=== PATIENT | female | born 1945 | race Caucasian/White ===

== ENCOUNTER 2016-09-28 22:49 | Inpatient (IN) | payer OTHER ==
[~2016-09-28] VITALS: Ht 160 cm; Wt 92.4 kg
[2016-09-28 23:31] LABS: PLATELET COUNT 362 x10^3mcL (130-400); RED CELL DISTRIBUTION WIDTH 12.5 % (11.5-14.5)
[2016-09-28 23:48] LABS: ALBUMIN 3.9 g/dL (3.4-5.0); ALKALINE PHOSPHATASE 89 U/L (46-116); ALT/SGPT 35 U/L (14-59); AST/SGOT 67 U/L (15-37); BILIRUBIN TOTAL 1.6 mg/dL (0.20-1.00); CALCIUM 8.8 mg/dL (8.5-10.1); CARBON DIOXIDE 20.8 mmol/L (21-32); CHLORIDE SERUM 65 mmol/L (98-107); CREATININE SERUM 0.7 mg/dL (0.6-1.0); GLUCOSE SERUM 155 mg/dL (74-106); POTASSIUM SERUM 3.3 mmol/L (3.5-5.1); TOTAL PROTEIN, SERUM 7.5 g/dL (6.4-8.2)
[2016-09-28 23:50] LABS: SODIUM SERUM 100 mmol/L (136-145)
[2016-09-29] VITALS (7 sets, daily range): BP systolic 90–150; BP diastolic 44–84; Ht 160 cm; Wt 92.4 kg
[2016-09-29] LABS: microscopic required? YES; urine erythrocyte 2+ (NEGATIVE)
[2016-09-29 00:10] LABS: AMPHETAMINE QUAL UR NONE DETECTED (NEG <=1000)
[2016-09-29 00:12] LABS: BAND NEUTROPHIL 0 % (0-10); BASOPHIL 0 % (0-2); MONOCYTE 7 % (0-7); SEGMENTED NEUTROPHILS 86 % (37-75); rbc morphology (normal/abnorm) NORMAL (NORMAL)
[2016-09-29 00:13] LABS: PLATELET MORPHOLOGY LARGE PLATELET SEEN
[2016-09-29 00:32] LABS: CK-MB 38.6 ng/mL (0-3.6)
[2016-09-29] MEDS ORDERED: ASPIR LOW81 MG PO (00:37)
[2016-09-29] MEDS ORDERED: CAC650 PO (00:38)
[2016-09-29] MEDS ORDERED: HYDROCHLOROTHIA25 MG PO (00:39)
[2016-09-29] MEDS ORDERED: LATUDA80 M1 (00:39)
[2016-09-29] MEDS ORDERED: STOOL SOFTENER100 MG PO (00:39)
[2016-09-29] MEDS ORDERED: NEURONTIN600 MG PO (00:39)
[2016-09-29] MEDS ORDERED: LISINOPRIL40 MG PO (00:39)
[2016-09-29] MEDS ORDERED: PROCARDIA XL90 MG PO (00:40)
[2016-09-29] MEDS ORDERED: ZOCOR40 MG PO (00:40)
[2016-09-29 06:37] LABS: BASOPHIL % 0.1 % (0-2); PLATELET COUNT 341 x10^3mcL (130-400); RED CELL DISTRIBUTION WIDTH 12.4 % (11.5-14.5)
[2016-09-29 06:50] LABS: ALKALINE PHOSPHATASE 76 U/L (46-116); ALT/SGPT 31 U/L (14-59); AST/SGOT 59 U/L (15-37); CALCIUM 7.9 mg/dL (8.5-10.1); CARBON DIOXIDE 21.6 mmol/L (21-32); CHLORIDE SERUM 76 mmol/L (98-107); CREATININE SERUM 0.5 mg/dL (0.6-1.0); GLUCOSE SERUM 113 mg/dL (74-106); POTASSIUM SERUM 3.1 mmol/L (3.5-5.1)
[2016-09-29 06:57] LABS: ALBUMIN 3.3 g/dL (3.4-5.0); SODIUM SERUM 109 mmol/L (136-145); TOTAL PROTEIN, SERUM 5.9 g/dL (6.4-8.2)
[2016-09-29 18:42] LABS: ALKALINE PHOSPHATASE 74 U/L (46-116); ALT/SGPT 32 U/L (14-59); AST/SGOT 56 U/L (15-37); BILIRUBIN TOTAL 0.6 mg/dL (0.20-1.00); CALCIUM 8.5 mg/dL (8.5-10.1); CARBON DIOXIDE 25.2 mmol/L (21-32); CHLORIDE SERUM 89 mmol/L (98-107); CREATININE SERUM 0.7 mg/dL (0.6-1.0); GLUCOSE SERUM 77 mg/dL (74-106); POTASSIUM SERUM 3.1 mmol/L (3.5-5.1); TOTAL PROTEIN, SERUM 6.3 g/dL (6.4-8.2)
[2016-09-29 19:00] LABS: ALBUMIN 3.2 g/dL (3.4-5.0)
[2016-09-29 19:04] LABS: SODIUM SERUM 123 mmol/L (136-145)
[2016-09-30 05:42] VITALS: BP 102/62
[2016-09-30 06:05] LABS: BASOPHIL % 0.9 % (0-2); PLATELET COUNT 331 x10^3mcL (130-400); RED CELL DISTRIBUTION WIDTH 12.8 % (11.5-14.5)
[2016-09-30 06:31] LABS: ALKALINE PHOSPHATASE 63 U/L (46-116); ALT/SGPT 30 U/L (14-59); AST/SGOT 45 U/L (15-37); BILIRUBIN TOTAL 0.4 mg/dL (0.20-1.00); CALCIUM 8.4 mg/dL (8.5-10.1); CARBON DIOXIDE 23.1 mmol/L (21-32); CHLORIDE SERUM 96 mmol/L (98-107); CREATININE SERUM 0.7 mg/dL (0.6-1.0); GLUCOSE SERUM 93 mg/dL (74-106); POTASSIUM SERUM 3.4 mmol/L (3.5-5.1); SODIUM SERUM 128 mmol/L (136-145); T4(THYROXINE) 7.7 ug/dL (4.7-13.3)
[2016-09-30 06:34] LABS: ALBUMIN 2.8 g/dL (3.4-5.0); TOTAL PROTEIN, SERUM 5.7 g/dL (6.4-8.2)
[2016-09-30 11:41] LABS: ERYTHROCYTE SED RATE 15 mm/hr (0-30)
[2016-09-30 13:39] VITALS: BP 152/95
[2016-09-30 16:51] LABS: CALCIUM 8.8 mg/dL (8.5-10.1); CARBON DIOXIDE 25.1 mmol/L (21-32); CHLORIDE SERUM 97 mmol/L (98-107); CREATININE SERUM 0.7 mg/dL (0.6-1.0); GLUCOSE SERUM 118 mg/dL (74-106); POTASSIUM SERUM 3.9 mmol/L (3.5-5.1); SODIUM SERUM 129 mmol/L (136-145)
[2016-09-30 20:40] VITALS: BP 129/60
[2016-09-30 21:26] LABS: CALCIUM 8.1 mg/dL (8.5-10.1); CARBON DIOXIDE 24.6 mmol/L (21-32); CHLORIDE SERUM 95 mmol/L (98-107); CREATININE SERUM 0.7 mg/dL (0.6-1.0); GLUCOSE SERUM 117 mg/dL (74-106); POTASSIUM SERUM 3.7 mmol/L (3.5-5.1); SODIUM SERUM 130 mmol/L (136-145)
[2016-10-01 06:23] VITALS: BP 121/60
[2016-10-01 06:30] LABS: CALCIUM 8.2 mg/dL (8.5-10.1); CARBON DIOXIDE 23.7 mmol/L (21-32); CHLORIDE SERUM 98 mmol/L (98-107); CREATININE SERUM 0.6 mg/dL (0.6-1.0); GLUCOSE SERUM 104 mg/dL (74-106); POTASSIUM SERUM 3.4 mmol/L (3.5-5.1); SODIUM SERUM 132 mmol/L (136-145); TRIGLYCERIDES 40 mg/dL (<150)
[2016-10-01 06:35] LABS: CHOLESTEROL 118 mg/dL (<200); CHOLESTEROL/HDL RATIO 1.8; HDL CHOLESTEROL 67 mg/dL (40-60)
[2016-10-01 06:52] LABS: BASOPHIL % 1.8 % (0-2); PLATELET COUNT 309 x10^3mcL (130-400); RED CELL DISTRIBUTION WIDTH 12.8 % (11.5-14.5)
[2016-10-01 09:15] VITALS: BP 116/65
[2016-10-01 14:40] VITALS: BP 149/74
[2016-10-01 16:27] VITALS: BP 134/62; BP 149/74
[2016-10-01 17:53] VITALS: BP 134/62
[2016-10-01 18:46] LABS: RHEUMATOID ARTHRITIS FACTOR <10.0 IU/mL (0.0-13.9)
[2016-10-02 06:36] LABS: RAPID PLASMA REAGIN Non Reactive (Non Reactive)
== END 2016-10-01 19:30 | disposition other institution (70) | DRG 640 ==
LOC: ED 22:49 → DU 09-29 00:31 → IC 09-29 00:31 → DU 09-29 20:29
PROVIDERS: Emergency Medicine; Internal Medicine; Internal Medicine Cardiovascular Disease; Internal Medicine Nephrology; ADMIT Internal Medicine
DX: E87.1 Hypo-osmolality and hyponatremia (principal); G93.41 Metabolic encephalopathy; I24.9 Acute ischemic heart disease, unspecified; E87.6 Hypokalemia; F31.9 Bipolar disorder, unspecified; I10 Essential (primary) hypertension; E78.5 Hyperlipidemia, unspecified; E11.9 Type 2 diabetes mellitus without complications; I95.9 Hypotension, unspecified; E87.8 Other disorders of electrolyte and fluid balance, not elsewhere classified; I25.10 Atherosclerotic heart disease of native coronary artery without angina pectoris; Z68.36 Body mass index [BMI] 36.0-36.9, adult; Z88.8 Allergy status to other drugs, medicaments and biological substances; Z88.6 Allergy status to analgesic agent; Z88.2 Allergy status to sulfonamides; Z90.49 Acquired absence of other specified parts of digestive tract; Z90.89 Acquired absence of other organs
CPT/HCPCS: 82962; 83880; 86431; A9500; J2060; J2785; J3480; J3490; J7030; J7042; J7070; Q0092